=== PATIENT | female | born 1970 | race Caucasian/White ===

== ENCOUNTER 2024-07-09 06:27 | Day surgery (SDC) | payer BC, SELFPAY | END 2024-07-09 09:09 | disposition home or self-care (01) | LOC: GI 06:27 | PROVIDERS: ATTENDING PHYSICIAN Internal Medicine Gastroenterology; FAMILY PHYSICIAN Family Medicine | DX: Z12.11 Encounter for screening for malignant neoplasm of colon (principal); K63.5 Polyp of colon | CPT/HCPCS: 45380; 88305 ==

== ENCOUNTER → 2024-08-10 10:56 | Outpatient (REF) | payer BC, SELFPAY | LOC: WDC 10:56 | PROVIDERS: ATTENDING PHYSICIAN Family Medicine | DX: Z12.31 Encounter for screening mammogram for malignant neoplasm of breast (principal) | CPT/HCPCS: 77063; 77067 ==